=== PATIENT | male | born 1955 | race Caucasian/White ===

== ENCOUNTER → 2019-11-23 09:48 | Outpatient (CLI) | payer OTHER, SELFPAY ==
--- NOTE | ~2019-11-23 | XR_ITS ---
XR chest 2V DATE: 11/23/2019 09:53 INDICATION: Nicotine dependence TECHNIQUE: 2 views COMPARISON: None FINDINGS: Bilateral hyperinflation, consistent with COPD. Normal heart size. No hilar or mediastinal enlargement. Possible 9 mm opacity overlying right upper lung field. CT thorax is recommended. No pulmonary infiltrate or consolidation, pleural effusion or pulmonary vascular congestion or pneumo thorax. Normal heart size. No hilar or mediastinal enlargement. Diffuse osteopenia. Levoscoliosis of the thoracic spine. IMPRESSION: Possible 9 mm right upper lobe density; recommend CT thorax Bilateral hyperinflation consistent with COPD Reviewed, dictated and finalized at location A.
== END ==
PROVIDERS: PCP Family Medicine; Visit Provider Family Medicine
DX: F17.200 Nicotine dependence, unspecified, uncomplicated (principal); R91.8 Other nonspecific abnormal finding of lung field
CPT/HCPCS: 71046

== ENCOUNTER 2022-06-28 07:34 | Outpatient (CLI) | payer OTHER, SELFPAY ==
[2022-06-28 20:21] LABS: Vitamin D 25 Hydroxy 40.7 ng/mL
[2022-06-28 20:25] LABS: Anion Gap 4 mmol/L (8-16); Blood Urea Nitrogen 11 mg/dL (9-20); Calcium 8.9 mg/dL (8.4-10.2); Carbon Dioxide 28 mmol/L (22-30); Chloride 100 mmol/L (98-107); Estimated Glomerular Filt Rate > 60; Glucose 77 mg/dL (65-110); Potassium 4.6 mmol/L (3.4-5.0); Sodium 132 mmol/L (137-145)
== END 2022-06-28 07:35 | disposition home or self-care (01) ==
PROVIDERS: PCP Family Medicine; Visit Provider Family Medicine
DX: R91.8 Other nonspecific abnormal finding of lung field (principal); R79.89 Other specified abnormal findings of blood chemistry; I10 Essential (primary) hypertension; E87.1 Hypo-osmolality and hyponatremia; Z79.899 Other long term (current) drug therapy
CPT/HCPCS: 36415; 80048; 82306

== ENCOUNTER 2023-07-14 08:47 | Outpatient (CLI) | payer OTHER, SELFPAY ==
[2023-07-14 18:58] LABS: Alanine Aminotransferase 12 U/L (6-50); Albumin Level 4.2 g/dL (3.5-5.1); Alkaline Phosphatase 74 U/L (38-126); Anion Gap 5 mmol/L (4-12); Aspartate Amino Transferase 76 U/L (17-59); Bilirubin,Total 0.7 mg/dL (0.2-1.3); Blood Urea Nitrogen 9 mg/dL (9-20); Calcium 9.5 mg/dL (8.4-10.2); Carbon Dioxide 24 mmol/L (22-30); Chloride 105 mmol/L (98-107); Estimated Glomerular Filt Rate > 60; Glucose 103 mg/dL (65-110); Potassium 4.1 mmol/L (3.4-5.0); Sodium 134 mmol/L (137-145)
[2023-07-14 19:14] LABS: Cholesterol 156 mg/dL (0-200); HDL Direct 50 mg/dL; Triglycerides 120 mg/dL (<150)
[2023-07-14 19:17] LABS: Prostate Specific Antigen 1.6 ng/mL (< OR = 4.0)
[2023-07-14 19:25] LABS: LDL Cholesterol Direct 76 mg/dL
[2023-07-14 19:34] LABS: Hematocrit 39.6 % (42.0-52.0); Hemoglobin 12.6 g/dL (14.0-18.0); Mean Corpuscular HGB Conc 31.8 g/dl (32-36); Mean Corpuscular Volume 100.5 fl (80-100); Mean Platelet Volume 10.3 fl (7.4-10.4); Platelet Count Result 417 k/mm3 (150-375); Red Blood Count 3.94 M/mm3 (4.6-6.20); White Blood Count 6.7 K/mm3 (4.5-10.0)
== END 2023-07-14 08:48 | disposition home or self-care (01) ==
PROVIDERS: PCP Nurse Practitioner Adult Health; Visit Provider Family Medicine
DX: Z12.5 Encounter for screening for malignant neoplasm of prostate (principal); Z90.49 Acquired absence of other specified parts of digestive tract; K52.9 Noninfective gastroenteritis and colitis, unspecified; J43.9 Emphysema, unspecified; F17.200 Nicotine dependence, unspecified, uncomplicated; R91.8 Other nonspecific abnormal finding of lung field; Z79.899 Other long term (current) drug therapy
CPT/HCPCS: 36415; 80053; 80061; 84153; 85027; G0103

== ENCOUNTER 2023-11-03 16:14 | Outpatient (CLI) | payer OTHER, SELFPAY ==
--- NOTE | ~2023-11-03 | XR_ITS ---
Clinical Indication: Pneumonia PA and lateral views of the chest: Comparison: 11/23/2019 Findings: The lungs are clear, without evidence of focal consolidation or pleural effusion. Cardiome diastinal silhouette is within normal limits. Bones and soft tissues are unremarkable. Impression: Normal chest. Reviewed, dictated and finalized at [facility]. Impression: Normal chest.
== END 2023-11-03 16:15 | disposition home or self-care (01) ==
PROVIDERS: PCP Nurse Practitioner Adult Health; Visit Provider Nurse Practitioner Adult Health
DX: Z87.01 Personal history of pneumonia (recurrent) (principal)
CPT/HCPCS: 71046

== ENCOUNTER 2024-07-18 07:47 | Outpatient (CLI) | payer OTHER, SELFPAY ==
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
--- OUTSIDE RECORDS SUMMARY | 2024-07-18 07:53 | XMS_ITS | Continuity of Care Document ---
Author Organization [facility] Address [address] [place] [address] Phone Care Team Providers Care Substation Operator Chief Name Role Phone Braden Orlando MD Unavailable Unavailable Allergies, Adverse Reactions, Alerts Substance Reaction Status Criticality No Known Drug Allergies Active No I nformation Medications Medication Instructions Dosage Effective Dates (start - stop) Status Comments tramadol 50 mg tablet take 1 tablet by oral route every 6 hours as needed 50 MG - Active Vitamin B-12 1,000 mcg tablet take 1 tablet by oral route every day - Active Vitamin D3 1,000 unit tablet take 1 tablet by oral route every day 1 tablet - Active Lomotil 2.5 mg-0.025 mg tablet take 3 tablet by oral route 2 times every day as needed 7.5 MG - Active Advance Directives Directive Yes / No Effective Date File Name No Information Encounters Encounter Description Practice Location Reason(s) For Visit Diagnoses Date Provider Providers Copied on Encounter [facility], [address], [place], [place], [address] , tel: [phone] [facility] No Information Darion Feliciano. [address] [place] [address], [id number] , [place]. tel: [phone] [facility], [address], [place], [address] , tel: [phone] [facility] Erectile dysfunction, unspecified erectile dysfunction typeSmoker 7 Darion Feliciaon. [address] [place] [address], [address], [id number] , . tel: [phone] Referring Provider: Braden Orlando, [address] [place] [address] [address], [place], [address] . tel:[phone] [facility], [address], [place], [place], [address] , tel: [phone] [facility] Screening for prostate cancerChronic midline low back pain, with sciatica presence unspecifiedLeft shoulder painChronic diarrheaWeight lossSmoker 7 Darion Feliciano. [address] [place] [address], [address], [place], [place], [address] [place] [address] , . tel: [phone] Referring Provider: Braden Orlando, [address] [place] [address] Road [address], [place], [address] . tel:[phone] [facility], [address], [place], [place], [address] , tel: [phone] [facility] No Information 6 Darion Feliciano. [address] [place] [address], [address], [place], [address] [place] [address] , . tel: [phone] [facility], [address], [place], [place], [address] , tel: [phone] [facility] Lumbago with sciatica, unspecified side 6 Darion Feliciano. [address] [place] [address], [address] , [place], [place], [address] , . tel: [phone] [facility], [address], [place], [place], [address] , tel: [phone] [facility] Lumbago with sciatica, unspecified side 6 Darion Feliciano. [address] [place] [address], [address], [place], [place], [address] , . tel: [phone] [facility], [address], [place], [place], [address] , tel: [phone] [facility] Low back pain with sciatica, sciatica laterality unspecified, unspecified back pain laterality, unspecified chronicity 6 Darion Feliciano. [address] [place] [address], [address], [place], [address] [place] [address] , . tel: [phone] [facility], [address], [place], [place], [address] , tel: [phone] [facility] Left leg painDiarrheaTobacco use 6 Hao Carreon. [address] [place] [address], [address] , [place], [place], [address] , . tel: [phone] Referring Provider: Braden Orlando, [address] [place] [address] [address] , [place], [address] [place] [address] . tel:[phone] [facility], [address], [place], [place], [address] , tel: [phone] [facility] No Information 6 Darion Feliciano. [address] [place] [address], [address] , [place], [place], [address] , . tel: [phone] [facility], [address], [place], [place], [address] , tel: [phone] [facility] Encounter for general health examinationChronic diarrheaSmokerScreeni ng for prostate cancerScreening for colon cancer 6 Darion Feliciano. [address] [place] [address], [address] , [place], [place], [address] , . tel: [phone] Referring Provider: Braden Orlando, [address] [place] [address] [address] , [place], [address] [place] [address] . tel:[phone] Family History Family Member Type Diagnosis Age At Onset Father Problem (finding) hypertension Father Problem (finding) raised blood lipids Mother Problem (finding) raised blood lipids Mother Problem (finding) hypertension Payers Payer name Insurance type Covered constitution party ID Authorfranka batoolyaron(s) [facility] [facility] [id number] Social History Type Description Quantity Date Captured Comments Alcohol Use Details Unknown Caffeine Use Details Unknown Tobacco Use Status Smoking Status No Information Sex Male Chief Complaint And Reason For Visit No Information Reason For Referral Reason For Referral No Information History Of Present Illness Encounter Date Complaint History Of Prese nt Illness No Information Functional Status Date Functional Assessmen t No Information Medications Administered Medication Instructions Dosage Effective Dates (start - stop) Status Comments No Drug Therapy Prescribed Instructions Date Instruction Additional Infor mation No Information Assessments Type Assessment Date No Information Patient Care Teams Name Effective Dates (start - stop) Status Members No Information
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
--- OUTSIDE RECORDS SUMMARY | 2024-07-18 07:53 | XMS_ITS | Continuity of Care Document ---
Author Organization [facility] Address [address] [place], [place] [address] [place] [address] Phone Care Team Providers Care Balance Weigher Name Role Phone Adriana OD, Jyoti Unavailable Unavailable Allergies, Adverse Reactions, Alerts Substance Reaction Status Criticality No Known Allergies Active No Inform ation Medications Medication Instructions Dosage Effective Dates (start - stop) Status Comments prednisolone acetate 1 % eye drops,suspension instill 1 drop by ophthalmic route 4 times every day into left eye(s) - Active diphenoxylate-atropine 2.5 mg-0.025 mg tablet take 1 tablet by oral route 4 times every day as needed 2.5 MG - Active Procedures Procedure Date Fundus Photography W/ Report Eye Exam & Treatment No Charge Refraction No Charge Optomap Fundus Photos 022 SCODI, Retina No Charge Orbscan Removal Of Sutures Eye Exam, New Patient Advance Directives Directive Yes / No Effective Date File Name No Information Encounters Encounter Description Practice Location Reason(s) For Visit Diagnoses Date Provider Providers Copied on [facility], [address], [place], [place], [id number], [place] tel:[phone] [place] No Information 5 Adriana OD Jyoti. [facility] [address], [address], [place], [place], [address], [place]. tel:[phone] [facility], [address], [place], [place], [address], [place] tel:[phone] [address] [place] Professional Pain/disco mfort (chief complaint) Corneal transplant statusPresence of intraocular lensPuckering of macula, right eyeVitreous degeneration, right eyePrimary iridocyclitis, left eye 3 Adriana OD Jyoti. [facility] [address], [address], [place], [place], [address], [place]. tel:[phone] Referring Provider: Jyoti Wright OD L, [facility] [address], [place], [address] . tel:[phone] [facility], [facility] [address], [place], [place], [address], [place] tel:[phone] [address] [place] Professional Complete Exam (chief complaint) Corneal transplant statusPuckerin g of macula, right eyePresence of intraocular lensAnisocoria Retained suture, initial encounter 2 Reji Omalley. [address], [facility] [place] [address], [place], [place], [address], [place]. tel:[phone] Referring Provider: Shahram Frost, [address] [facility] [address], [place], [address] . tel:[phone] [facility], [facility] [address], [place], [place], [address], [place] tel:[phone] [address] [place] Professional No Information 2 Reji Omalley. [address], [address], [place], [place], [address], [place]. tel:[phone] Family History Family Member Type Diagnosis Age At Onset No Information Payers Payer name Insurance type Covered libertarian ID Authoriza tion(s) [employer] [id number] Social History Type Description Quantity Date Captured Comments Alcohol Use Details Unknown Caffeine Use Details Unknown Tobacco Use Status Smoking Status No Information Sex Male Chief Complaint And Reason For Visit No Information Reason For Referral Reason For Referral No Information Plan Of Treatment Date Type Action Status Goal Tobacco cessation counseling completed Goal Tobacco cessation counseling completed Goal Tobacco cessation counseling completed Patient Education Uveitis: Care Instructi ons completed Patient Education Learning About Your Eye s completed History Of Present Illness Encounter Date Complaint History Of Prese nt Illness Pain/discomfort The 67 year old patient presents for evaluation of Pain/discomfort in the left eye. Pt reports pain OS started hurting over the weekend. OS very red and pt reports no itching, or discharge. Pt did use OTC lubricating drops but did not help much. Pt reports not using any other drops. Complete Exam The 65 year old patient presents for evaluation of Complete Exam in the right eye and left eye. Hx of PCIOL OU, K transplant OD, and Retina injections OD. Pt reports got PCIOL OU. Pt reports then he had to get K transplant because the CE gave him scar tissue, OD, then he had swelling in the back of 1.5-2 yrs ago so he had to get injection in OD. Pt reports ever since injection OD is not as bright as OS and he has noticed pupil is larger, OD>OS. Pt reports OS VA is fine. Pt reports he uses Pred about every couple weeks OD. Functional Status Date Functional Assessmen t No Information Instructions Date Instruction Additional Infor kandy Impression/Plan Impression/Plan Assessments Type Assessment Date No Information Patient Care Teams Name Effective Dates (start - stop) Status Members No Information
[2024-07-18 19:46] LABS: Basophils Absolute Auto 0.1 K/mm3 (0.0-0.1); Basophils Percent Auto 1.4 % (0.2-1.2); Eosinophils Absolute Auto 0.6 K/mm3 (0-0.3); Eosinophils Percent Auto 6.8 % (0-4.4); Hematocrit 36.8 % (42.0-52.0); Hemoglobin 11.9 g/dL (14.0-18.0); Immature Granulocyte Absolute 0.02 K/mm3 (0.00-0.031); Immature Granulocyte Percent A 0.2 % (0-0.5); Lymphocytes Absolute Auto 2.68 K/mm3 (0.9-3.2); Lymphocytes Percent Auto 31.9 % (18.3-44.2); Mean Corpuscular HGB Conc 32.3 g/dl (32-36); Mean Corpuscular Hemoglobin 31.6 pg (26-34); Mean Corpuscular Volume 97.9 fl (80-100); Mean Platelet Volume 10.6 fl (7.4-10.4); Monocytes Absolute Auto 0.9 K/mm3 (0.1-0.6); Monocytes Percent Auto 10.2 % (2.6-8.5); Neutrophils Absolute Auto 4.2 K/mm3 (1.3-6.7); Neutrophils Percent Auto 49.5 % (45.5-73.1); Platelet Count Result 345 k/mm3 (150-375); Red Blood Count 3.76 M/mm3 (4.6-6.20); Red Cell Distribution Width 13.3 % (11.5-14.5); White Blood Count 8.4 K/mm3 (4.5-10.0)
[2024-07-18 20:07] LABS: Alanine Aminotransferase 16 U/L (6-50); Albumin Level 4.3 g/dL (3.5-5.1); Alkaline Phosphatase 79 U/L (38-126); Anion Gap 8 mmol/L (4-12); Aspartate Amino Transferase 77 U/L (17-59); Bilirubin,Total 0.8 mg/dL (0.2-1.3); Blood Urea Nitrogen 15 mg/dL (9-20); Calcium 9.5 mg/dL (8.4-10.2); Carbon Dioxide 23 mmol/L (22-30); Chloride 105 mmol/L (98-107); Cholesterol 176 mg/dL (0-200); Estimated Glomerular Filt Rate > 60; Glucose 92 mg/dL (65-110); HDL Direct 61 mg/dL; Magnesium 1.9 mg/dL (1.6-2.3); Potassium 3.9 mmol/L (3.4-5.0); Sodium 136 mmol/L (137-145); Triglycerides 117 mg/dL (<150)
[2024-07-18 20:17] LABS: LDL Cholesterol Direct 77 mg/dL
[2024-07-18 20:32] LABS: Vitamin D 25 Hydroxy 27.4 ng/mL
== END 2024-07-18 07:48 | disposition home or self-care (01) ==
PROVIDERS: PCP Nurse Practitioner Adult Health; Visit Provider Nurse Practitioner Adult Health
DX: Z51.81 Encounter for therapeutic drug level monitoring (principal); Z79.899 Other long term (current) drug therapy; R79.89 Other specified abnormal findings of blood chemistry; I10 Essential (primary) hypertension
CPT/HCPCS: 36415; 80053; 80061; 82306; 82607; 83735; 85025